=== PATIENT | male | born 1960 | race Caucasian/White ===

== ENCOUNTER 2017-11-29 08:02 | Day surgery (SDC) | payer BC ==
[~2017-11-29] VITALS: Ht 188 cm; Wt 98.1 kg
[2017-11-29] MEDS ORDERED: normal saline 1000ml 1,000 ML IV PRN (08:30)
[2017-11-29] MEDS ORDERED: FOLI1TAB86 PO (08:36)
[2017-11-29] MEDS ORDERED: HYDR-3965 PO (08:36)
[2017-11-29] MEDS ORDERED: LANT1000 PO (08:36)
[2017-11-29] MEDS ORDERED: ZOLP5TAB8 PO (08:36)
[2017-11-29] MEDS ORDERED: ASPI81TA52 PO (08:36)
[2017-11-29] MEDS ORDERED: FURO80TA3 PO (08:36)
[2017-11-29 09:33] LABS: BASOPHILS % (AUTO) 0.2 % (0-1); EOSINOPHILS # (AUTO) 0.3 X10'3 (0-0.9); EOSINOPHILS % (AUTO) 2.6 % (0-6); HEMOGLOBIN 12.3 g/dl (14.0-17.9); LYMPHOCYTES # (AUTO) 1.1 X10'3 (1.1-4.8); LYMPHOCYTES % (AUTO) 11.2 % (21-51); MEAN CORPUSCULAR HEMOGLOBIN 31.7 PG (27.0-31.0); MEAN CORPUSCULAR HGB CONC 34.2 % (33.0-36.5); MEAN CORPUSCULAR VOLUME 92.8 FL (78-98); MEAN PLATELET VOLUME 7.4 FL (7.4-10.4); MONOCYTES # (AUTO) 0.6 X10'3 (0-0.9); NEUTROPHILS # (AUTO) 8.2 X10'3 (1.8-7.7); PLATELET COUNT 228 X10'3 (140-440); RED BLOOD COUNT 3.88 X10'6 (4.70-6.10); RED CELL DISTRIBUTION WIDTH 14.5 % (11.5-14.5); WHITE BLOOD COUNT 10.2 X10'3 (4.5-11.0)
[2017-11-29 09:42] LABS: ALBUMIN 4.1 G/DL (3.4-5.0); ANION GAP 11 (8-16); BLOOD UREA NITROGEN 64 MG/DL (7-18); BUN/CREATININE RATIO 12.5 (5.4-32.0); CALCIUM 10.2 MG/DL (8.5-10.1); CHLORIDE 99 MMOL/L (99-107); GLUCOSE 99 MG/DL (70-104); POTASSIUM 4.8 MMOL/L (3.5-5.1); SODIUM 138 MMOL/L (135-145); TOTAL CARBON DIOXIDE 27.9 MMOL/L (24-32); eGFR 12 ML/MIN
[2017-11-29 09:45] VITALS: BP 118/52
[2017-11-29] MEDS ORDERED: fentaNYL/PF 50MCG/1 ML 2ML syringe IV PRN (09:55)
[2017-11-29] MEDS ORDERED: LIDOcaine 1%/PF 5ML 10 MG/ML VIAL SQ ONE (09:55)
[2017-11-29] MEDS ORDERED: heparin 1,000 UNITS/NS 500ml 500 ML ICATH ONE (09:55)
[2017-11-29] MEDS ORDERED: midazolam 2 mg/2 ml injection IV PRN (09:55)
[2017-11-29] MEDS ORDERED: iohexol 300mg/ml 100ml inj. ONE (10:07)
[2017-11-29] MEDS ORDERED: midazolam 2 mg/2 ml injection ONE (10:07)
[2017-11-29] MEDS ORDERED: fentaNYL/PF 50MCG/1 ML 2ML syringe ONE ×3 (10:07→11:30)
[2017-11-29] MEDS ORDERED: heparin 1,000 UNITS/NS 500ml 500 ML ONE (10:07)
[2017-11-29] MEDS ORDERED: LIDOcaine 1%/PF 5ML 10 MG/ML VIAL ONE (10:07)
[2017-11-29 12:07] VITALS: BP 118/56
[2017-11-29 12:22] VITALS: BP 104/45
[2017-11-29 12:37] VITALS: BP 124/51
== END 2017-11-29 13:02 | disposition home or self-care (01) ==
LOC: SSTAY O 08:02
PROVIDERS: ATTEND Radiology Diagnostic Radiology
DX: T82.858A Stenosis of other vascular prosthetic devices, implants and grafts, initial encounter (principal); Y83.2 Surgical operation with anastomosis, bypass or graft as the cause of abnormal reaction of the patient, or of later complication, without mention of misadventure at the time of the procedure; Y92.89 Other specified places as the place of occurrence of the external cause; I12.0 Hypertensive chronic kidney disease with stage 5 chronic kidney disease or end stage renal disease; N18.6 End stage renal disease; K21.9 Gastro-esophageal reflux disease without esophagitis; F41.8 Other specified anxiety disorders; F43.10 Post-traumatic stress disorder, unspecified; Z98.52 Vasectomy status; Z79.891 Long term (current) use of opiate analgesic; Z86.73 Personal history of transient ischemic attack (TIA), and cerebral infarction without residual deficits; Z79.82 Long term (current) use of aspirin; Z87.01 Personal history of pneumonia (recurrent); Z99.2 Dependence on renal dialysis; Z72.89 Other problems related to lifestyle; Z98.890 Other specified postprocedural states; Z79.899 Other long term (current) drug therapy
CPT/HCPCS: 36415; 36902; 76937; 80048; 85025; 85610; 99152; C1725; C1769; C1894; J1644; J2001; J2250; J3010; J7030; Q9967; 99153; A4620

== ENCOUNTER 2018-06-04 10:57 | Day surgery (SDC) | payer BC ==
[~2018-06-04] VITALS: Ht 188 cm; Wt 102.8 kg
[2018-06-04] VITALS (7 sets, daily range): BP systolic 99–112; BP diastolic 46–64
[~2018-06-04 10:57] MED LIST: ASPI81TA52 PO; FOLI1TAB86 PO; FURO80TA3 PO; HYDR-3965 PO; LANT1000 PO; ZOLP5TAB8 PO
[2018-06-04] MEDS ORDERED: normal saline 1000ml 1,000 ML IV PRN (11:25)
[2018-06-04] MEDS ORDERED: SODI650T29 PO (11:59)
[2018-06-04] MEDS ORDERED: LYR25C PO (11:59)
[2018-06-04 12:13] LABS: BASOPHILS # (AUTO) 0.1 X10'3 (0-0.2); BASOPHILS % (AUTO) 0.9 % (0-1); EOSINOPHILS # (AUTO) 0.1 X10'3 (0-0.9); EOSINOPHILS % (AUTO) 0.7 % (0-6); HEMATOCRIT 33.8 % (42.0-52.0); LYMPHOCYTES # (AUTO) 1.1 X10'3 (1.1-4.8); LYMPHOCYTES % (AUTO) 10.1 % (21-51); MEAN CORPUSCULAR HEMOGLOBIN 31.8 PG (27.0-31.0); MEAN CORPUSCULAR HGB CONC 32.4 g/dL (33.0-36.5); MEAN CORPUSCULAR VOLUME 98.1 FL (78-98); MEAN PLATELET VOLUME 9.4 FL (7.4-10.4); MONOCYTES # (AUTO) 1.1 X10'3 (0-0.9); MONOCYTES % (AUTO) 10.5 % (2-12); NEUTROPHILS # (AUTO) 8.3 X10'3 (1.8-7.7); NEUTROPHILS % (AUTO) 77.8 % (42-75); PLATELET COUNT 178 X10'3 (140-440); RED BLOOD COUNT 3.45 X10'6 (4.70-6.10); WHITE BLOOD COUNT 10.7 X10'3 (4.5-11.0)
[2018-06-04 12:23] LABS: ALBUMIN 3.3 G/DL (3.4-5.0); ANION GAP 18 (8-16); BLOOD UREA NITROGEN 115 MG/DL (7-18); BUN/CREATININE RATIO 16.4 (5.4-32.0); CALCIUM 8.6 MG/DL (8.5-10.1); CHLORIDE 96 MMOL/L (99-107); CREATININE 7.03 MG/DL (0.60-1.10); GLUCOSE 91 MG/DL (70-104); POTASSIUM 4.2 MMOL/L (3.5-5.1); SODIUM 133 MMOL/L (135-145); TOTAL CARBON DIOXIDE 18.6 MMOL/L (24-32); eGFR 8 ML/MIN
[2018-06-04] MEDS ORDERED: midazolam 2 mg/2 ml injection ONE (12:40)
[2018-06-04] MEDS ORDERED: LIDOcaine 1%/PF 5ML 10 MG/ML VIAL ONE ×2 (12:40→13:21)
[2018-06-04] MEDS ORDERED: iohexol 300mg/ml 100ml inj. ONE ×2 (12:41→12:58)
[2018-06-04] MEDS ORDERED: fentaNYL/PF 50MCG/1 ML 2ML syringe ONE (12:41)
[2018-06-04] MEDS ORDERED: heparin 1,000 UNITS/NS 500ml 500 ML ONE (12:41)
[2018-06-04 12:58] LABS: PLATELET ESTIMATE NORMAL
[2018-06-04 12:59] LABS: ANISOCYTOSIS 3+; ELLIPTOCYTES FEW
[2018-06-04] MEDS ORDERED: heparin 1,000 units/ml 10ml inj ICATH ONE (13:20)
[2018-06-04] MEDS ORDERED: heparin 1,000unit/ml 10ml vial 10 ML ONE (13:21)
== END 2018-06-04 16:20 | disposition home or self-care (01) ==
LOC: SSTAY O 10:57
PROVIDERS: ATTEND Radiology Vascular & Interventional Radiology
DX: T82.868A Thrombosis due to vascular prosthetic devices, implants and grafts, initial encounter (principal); Y83.8 Other surgical procedures as the cause of abnormal reaction of the patient, or of later complication, without mention of misadventure at the time of the procedure; Y92.89 Other specified places as the place of occurrence of the external cause; I12.9 Hypertensive chronic kidney disease with stage 1 through stage 4 chronic kidney disease, or unspecified chronic kidney disease; N18.9 Chronic kidney disease, unspecified; K21.9 Gastro-esophageal reflux disease without esophagitis; Z86.73 Personal history of transient ischemic attack (TIA), and cerebral infarction without residual deficits; Z87.898 Personal history of other specified conditions; Z79.899 Other long term (current) drug therapy
CPT/HCPCS: 36415; 36558; 36901; 76937; 77001; 80048; 85025; 99152; 99153; J1644; J2001; J2250; J3010; J7030; Q9967; A9270; C1750; C1769; C1894